=== PATIENT | male | born 1995 | race Two or more races ===

== ENCOUNTER 2016-08-15 15:02 | Inpatient (IN) | payer MEDICAID ==
--- NOTE | 2016-08-15 15:04 | EDPHY ---
H & P Time Seen by Provider: 08/15/16 15:04 HPI/ROS: CHIEF COMPLAINT: Altered mental status HISTORY OF PRESENT ILLNESS: Police were called to a patient who was wondering around acting strangely. Paramedics called and brought patient into the emergency department for evaluation. Denies trauma. Patient has no medical complaints. Denies history of psychiatric illness. REVIEW OF SYSTEMS: Eye: no change in vision ENT: no sore throat Cardiac: no chest pain or syncope Pulmonary: no cough or SOB Abdomen: no vomiting, diarrhea, abdominal pain Musculoskeletal: no back pain Skin: no rash Neuro: no headache Constitutional: no fever : no urinary symptoms A comprehensive 10 point review of systems is otherwise negative aside from elements mentioned in the history of present illness. PAST MEDICAL HISTORY: denies Social history: negative drugs or alcohol General Appearance: Alert and conversant, cooperative. Eyes: No scleral icterus. ENT, Mouth: Normal mucous membranes. No intraoral laceration or tongue abrasion. Respiratory: Normal respiratory effort, breath sounds equal, lungs are clear to auscultation. Cardiovascular: Regular rate and rhythm. Gastrointestinal: Abdomen is soft and non tender. Neurological: Alert and oriented x person, [facility]. Normally conversant. Face symmetric, normal movement and sensation in all extremities. Skin: Warm and dry, no rashes. Musculoskeletal: No peripheral edema and no joint swelling. Neck supple, no meningeal signs. Psychiatric: Not agitated. Emergency Department course/MDM: Patient is alert but does have rambling speech. He does not have any external evidence of trauma , denies drugs or alcohol. Discussed with PD at 1523; patient passed out on 's lawn. PD contacted by [facility] [place], because stranger passed out on lawn. 1735: Discussed in detail with the brother. He tells me that over the past week the patient has become increasingly psychotic, ranging in an in usual fashion about god and evangelical and screaming about his interpretation of evangelical, on Monday night. The day before that he had been explaining to his brother how the "[place] lights made him feel" and his brother thought that was very unusual for him to be talking that way. Yesterday he got in the car to help take his brother to work and when his brother said where we going? Patient said wherever the Force may take us. He drove his brother to work and then stayed in the car for the next 5 hours. At this time the patient is placed on a mental health hold for grave disability and increasingly psychotic behavior. The patient had a medical screening evaluation performed. There does not appear to be an aute emergent medical or surgical condition which would preclude psychiatric evaluation at this time. Mental health evaluation is requested at 1950. Signed out to Mumtaz at 2100 with psych evaluation ordered and pending. (John Trevizo) Care assumed by me from [facility] pending mental health evaluation. Patient is likely new schizophrenic with new hallucinations. 0300 patient has been accepted to [address] [place] [address] Oneil. I have completed the entire with warm. (Alexei Marrero) Constitutional: Initial Vital Signs Temperature (C) 37.5 C 08/15/16 15:10 Heart Rate 93 08/15/16 15:10 Respiratory Rate 18 08/15/16 15:10 Blood Pressure 160/98 H 08/15/16 15:10 O2 Sat (%) 98 08/15/16 15:10 O2 Delivery Mode Room Air Allergies/Adverse Reactions: No Known Allergies Allergy (Unverified 08/15/16 15:17) Home Medications: Medication Instructions Recorded NK [No Known Home Meds] 08/15/16 Medical Decision Making - Diagnostics Imaging: Normal noncontrast head CT per Dr. Alphonso Roberts at 7:29 p.m. (John Trevizo) Differential Diagnosis: Differential considered including but not limited to hypoglycemia, other metabolic, drugs or alcohol, primary psychiatric, other intoxicants. (John Trevizo) Other Provider: 9:00 p.m. care transferred to id by Dr. John Trevizo. The patient is sitting comfortably staring at the wall. He has no complaints. We are awaiting psychiatric evaluation. He is on a hold. He has been medically cleared. 11:00 p.m. care transferred to Dr. Girma Jennings. Patient has been value aid by mental health they plan to admit him to an inpatient psychiatric unit. He is on a hold. (Zacarias Pandya) - Data Points Laboratory Results: Laboratory Results 08/15/16 15:32 08/15/16 15:32 08/15/16 08/15/16 08/15/16 18:15 15:32 15:28 WBC 10.75 H 10^3/uL (3.80-9.50) RBC 4.93 10^6/uL (4.40-6.38) Hgb 15.8 g/dL (13.7-17.5) POC Hgb 16.0 gm/dL (14.5-17.3) Hct 44.8 % (40.0-51.0) POC Hct 47 % (42.8-50.6) MCV 90.9 fL (81.5-99.8) MCH 32.0 pg (27.9-34.1) MCHC 35.3 g/dL (32.4-36.7) RDW 12.0 % (11.5-15.2) Plt Count 229 10^3/uL (150-400) MPV 10.9 fL (8.7-11.7) Neut % (Auto) 78.4 H % (39.3-74.2) Lymph % (Auto) 15.1 % (15.0-45.0) Sunflower % (Auto) 5.6 % (4.5-13.0) Eos % (Auto) 0.0 L % (0.6-7.6) Baso % (Auto) 0.5 % (0.3-1.7) Nucleat RBC Rel Count 0.0 % (0.0-0.2) Absolute Neuts (auto) 8.44 H 10^3/uL (1.70-6.50) Absolute Lymphs (auto) 1.62 10^3/uL (1.00-3.00) Absolute Monos (auto) 0.60 10^3/uL (0.30-0.80) Absolute Eos (auto) 0.00 L 10^3/uL (0.03-0.40) Absolute Basos (auto) 0.05 10^3/uL (0.02-0.10) Absolute Nucleated RBC 0.00 10^3/uL (0-0.01) Immature Gran % 0.4 % (0.0-1.1) Immature Gran # 0.04 10^3/uL (0.00-0.10) POC Sodium 145 H mEq/L (134-144) Sodium 145 H mEq/L (134-144) POC Potassium 3.2 L mEq/L (3.3-5.0) Potassium 3.7 mEq/L (3.5-5.2) POC Chloride 106 mEq/L (96-108) Chloride 107 mEq/L (97-110) Carbon Dioxide 19 L mEq/l (22-31) Anion Gap 19 mEq/L (8-16) POC BUN 19 mg/dL (7-23) BUN 16 mg/dL (7-23) Creatinine 0.8 mg/dL (0.7-1.3) POC Creatinine 0.8 mg/dL (0.8-1.5) Estimated GFR > 60 Glucose 77 mg/dL (70-100) POC Glucose 87 mg/dL (70-100) Calcium 9.5 mg/dL (8.5-10.4) Salicylates < 1.0 L mg/dL (2.0-20.0) Urine Opiates Screen NEGATIVE (NEGATIVE) Acetaminophen < 10 L mcg/mL (10.0-30.0) Urine Barbiturates NEGATIVE (NEGATIVE) Ur Phencyclidine Scrn NEGATIVE (NEGATIVE) Ur Amphetamine Screen NEGATIVE (NEGATIVE) U Benzodiazepines Scrn NEGATIVE (NEGATIVE) Urine Cocaine Screen NEGATIVE (NEGATIVE) U Marijuana (THC) Screen NON-NEGATIVE H (NEGATIVE) Ethyl Alcohol < 10 mg/dL (0-10) Medications Given: Discontinued Medications Lorazepam (Ativan Injection) 2 mg IVP EDNOW ONE Stop: 08/15/16 18:42 Last Admin: 08/15/16 18:41 Dose: 2 mg Point of Care Test Results: 08/15/16 15:28 POC Sodium 145 H POC Potassium 3.2 L POC Chloride 106 POC BUN 19 POC Creatinine 0.8 POC Glucose 87 Departure - Departure Disposition: [facility] IP Clinical Impression: Psychotic disorder Qualifiers: Psychosis type: other Qualifier Code: (F28) Other psychotic disorder not due to a substance or known physiological condition Condition: Fair Referrals: NONE *PRIMARY CARE P,. [Primary Care Provider] - As per Instructions
[2016-08-15 15:43] LABS: % IMMATURE GRANULYOCYTES 0.4 % (0.0-1.1); ABSOLUTE IMMATURE GRANULOCYTES 0.04 10^3/uL (0.00-0.10); ADD DIFF? NO; ADD MORPH? NO; ADD SCAN? NO; ATYPICAL LYMPHOCYTE FLAG 20 (0-99); FRAGMENT RBC FLAG 0 (0-99); HEMATOCRIT 44.8 % (40.0-51.0); HEMOGLOBIN 15.8 g/dL (13.7-17.5); LEFT SHIFT FLG 0 (0-99); LIPEMIA HEMOLYSIS FLAG 90 (0-99); MEAN CELL HEMOGLOBIN CONCENTR. 35.3 g/dL (32.4-36.7); MEAN CELL VOLUME 90.9 fL (81.5-99.8); MEAN PLATELET VOLUME 10.9 fL (8.7-11.7); PLATELET CLUMPS FLAG 10 (0-99); PLATELET COUNT 229 10^3/uL (150-400); RED BLOOD CELL COUNT 4.93 10^6/uL (4.40-6.38)
[2016-08-15 16:13] LABS: ANION GAP 19 mEq/L (8-16); CALCIUM 9.5 mg/dL (8.5-10.4); CARBON DIOXIDE 19 mEq/l (22-31); CHLORIDE 107 mEq/L (97-110); CREATININE 0.8 mg/dL (0.7-1.3); ETHANOL SERUM < 10 mg/dL (0-10); GLOMERULAR FILTRATION RATE > 60; GLUCOSE 77 mg/dL (70-100); POTASSIUM 3.7 mEq/L (3.5-5.2); SODIUM 145 mEq/L (134-144)
[2016-08-15 17:19] LABS: SALICYLATE < 1.0 mg/dL (2.0-20.0)
[2016-08-15] MEDS ORDERED: LORazepam 2 MG/ML INJ ONE (18:27)
[2016-08-15] MEDS ORDERED: LORazepam 2 MG/ML INJ IVP ONE (18:41)
--- NOTE | 2016-08-15 19:33 | CT ---
CT Scan of Head (Without Contrast) Clinical Indications: Psychosis, trauma. Technique: Axial CT images were acquired from foramen magnum through vertex, without intravenous con trast. Soft tissue and bone windows were reviewed on the computer workstation. Images were reconstr ucted down to 1.25 mm images. Dose reduction techniques were utilized. Findings: No mass lesions are seen, and there is no evidence of intracranial hemorrhage or acute inf arct. The ventricles and subarachnoid spaces are normal in size for this age group. Bone windows re veal no sign of fracture. The paranasal sinuses and mastoid air cells are free of fluid. Impression: Normal CT of the head. I telephoned results to Dr. John Trevizo at 1925 hours.
[2016-08-16] MEDS ORDERED: MAGNESIUM HYDROXIDE 30 ML UDCUP PO PRN (03:10)
[2016-08-16] MEDS ORDERED: MAG HYDROX/AL HYDROX/SIMETH 30 ML UDCUP PO PRN (03:10)
[2016-08-16] MEDS ORDERED: NICOTINE POLACRILEX 2 MG GUM B PRN (03:10)
[2016-08-16] MEDS: RISPERIDONE 1 MG ODT TAB SL PRN (13:28)
[2016-08-16] MEDS: LORazepam 0.5 MG TAB PO PRN (13:28)
--- NOTE | 2016-08-16 16:49 | BCON ---
[f rep st] BEHAVIORAL HEALTH CONSULTATION INTERNAL MEDICINE CONSULTATION DATE OF CONSULTATION: 08/16/2016 REFERRING PHYSICIAN: Rupert Oneil MD REASON FOR CONSULTATION: medical clearance for inpatient behavioral health stay. HISTORY OF PRESENT ILLNESS: Mr. Boggs was brought to the emergency department [place] Per the emergency department report, he was wandering around, and he has had increasing psychotic behavior over the past week. He was evaluated by the emergency department and admitted for further psychiatric care. He is currently without any acute complaints. PAST MEDICAL HISTORY: He reports history of concussions x2 when he was a child. Otherwise, he denies any history of medical illness or surgery. He reports that despite the concussions, he was able to complete high school. MEDICATIONS: He was not on any medications. ALLERGIES: There is an allergy to shellfish listed. SOCIAL HISTORY: He lives with his parents. He has worked in [email or web address]. He is a marijuana user. He denies tobacco smoking or alcohol, or other drugs of abuse. FAMILY HISTORY: Noncontributory. REVIEW OF SYSTEMS: A 10-point review of systems was conducted and was negative. PHYSICAL EXAM: VITAL SIGNS: Blood pressure is 146/78, heart rate is 95, respiratory rate 16, oxygen saturation is 98% on room air. His weight is 82.6 kg for a body mass index of 24. GENERAL: This is a well-nourished, well- developed man appears his chronologic age, cooperative, and in no acute distress. HEENT: Extraocular movements are intact. Pupils are equal, round, reactive and reactive to light. Mucous membranes are moist. Dentition is in good condition. NECK: Supple without thyromegaly. HEART: Regular rate and rhythm with no murmurs, rubs, or gallops. LUNGS: Clear to auscultation bilaterally. ABDOMEN: Soft, nontender, nondistended with normoactive bowel sounds. EXTREMITIES: There is no cyanosis, clubbing, or edema. NEUROLOGIC: He is alert. Orientation was not checked. He has a bizarre affect, somewhat guarded and with pressured speech at the same time. Cranial nerves 2-12 are grossly intact. There is no focal weakness. Sensation is intact to light touch. SKIN: Overall is warm and dry, but his palms are cool and sweaty. LABORATORY: Studies drawn in the emergency department: CBC showed an elevated white blood count cell count of 10.75 with no left shift. There was a predominance of neutrophils and a relative decrement of eosinophils. Serum chemistry revealed an elevated sodium at 145. Initially in the emergency department, his potassium was 3.2, but later corrected to 3.7. His CO2 was slightly low at 19. Otherwise, renal function and electrolytes were within normal limits. Toxicology in the serum was negative for salicylates, acetaminophen, or ethyl alcohol. Toxicology in the urine was non-negative for marijuana and otherwise negative for any substances of abuse. ASSESSMENT AND PLAN: 1. Mental health issues: Pending further evaluation and management per Psychiatry and the mental health team. 2. Leukocytosis: This is mild and likely due to stress. He can consider follow up on this issue with primary care after discharge. 3. Hypernatremia: Very mild. He may have had some dehydration as he reported that he has been thirsty. Would monitor for normal oral intake and otherwise, further evaluation is not indicated. 4. Elevated blood pressure: Possibly due to stress. Advise continued monitoring and consider initiation of medications if his blood pressure remains elevated after his psychiatric condition improves. I see no medical contraindications to Mr. Boggs's continued stay on the inpatient behavioral health unit, or to any psychiatric medications or procedures. Thank you very much for including me in the care of Mr. Boggs, and please do not hesitate to contact me or the hospitalist service should there be need for further medical evaluation. /[id number]/MODL MTDD
--- NOTE | 2016-08-16 17:39 | BAPA ---
[f rep st] ADMISSION PSYCHIATRIC ASSESSMENT DATE OF SERVICE: 08/16/2016 REASON FOR EVALUATION: The patient is a 20-year-old male who was brought to the emergency d epartment by EMS after his family called them concerned for his safety. He apparently had wandered o ff after an argument with his brother and had been walking around. At some point, he drove his vehic le to the [facility] where he parked it and left the doors open. He then continue d to wander and ended up [place] and knocked on someone's door requesting a glass of water. He appeared disorganized and confused, and the home dentist/owner called the po lice. They called EMS, and he was brought to the hospital for further evaluation. In the emergency department, he was disorganized and struggled to give a coherent history. He made statements to EPS such as, "I'm not a rapper, I'm a gorilla that claps." He also stated that he was concerned about hi s brother and that he felt like he was in someway acting against him. He stated that they had gotten into an argument, because he believed that he was either acting against him or was following him. H gustavo states that lately he has begun to believe that "all eyes are on me." He states that he has recent ly felt "different" and has been increasingly anxious, and, by his own admission, paranoid. He state s he believes that people are watching him at all times, and that a friend of his who overdosed but s urvived is actually and that people are lying to him about it. The patient's brother states julianne t the patient has not been sleeping well, that he has not been eating and has been acting strangely. The family actually filed a missing person's report because the patient had abruptly left, and they had no idea where he was. He has no previous psychiatric history and is a regular pot user but appar ently had been cutting back recently due to what his experience was with paranoia. Patient offers sandra matias additional information today stating, "I don't feel like myself." He does state that he believe s people are watching him and that his brother, at times, may be acting against him, though is not sp ecific about any formed thoughts or ideas. He states that he has had trouble sleeping due to anxiety and fear and has typically slept between 1 and 4 hours in the last 4-5 nights. He states that he wa s worried that the marijuana "was really bad for my brain" and that he decreased from using around a gram a day to using less but continues to use on a regular basis. He denies any other drug use. He denies having any auditory hallucinations, though at times appears internally preoccupied during the interview. PAST PSYCHIATRIC HISTORY: The patient denies any previous psychiatric treatment of any kind. He has had no previous medication treatments or psychiatric hospitalizations. Patient denies any previous suicide attempts. ALLERGIES: No known medical allergies. CURRENT MEDICATIONS: None. PAST MEDICAL HISTORY: Significant for 2 concussions, 1 he sustained as a child when he hit his sled into a tree and another in high school playing football. He states that he was seen for medical eval uation due to disorientation after a football injury but suffered no lasting effects. SOCIAL HISTORY: Patient lives in [place] with his stepfather, his mother, his twin brother and his si ster. He works in [employer] and states that this is a good job. He is a high [employer] graduate. He denies any legal problems. He denies any other specific stressors at this time. SUBSTANCE ABUSE HISTORY: Patient states that he only uses marijuana, and that his use of this has de creased from a gram a day to less than that, though he is somewhat nonspecific. FAMILY HISTORY: Patient denies any family history of mental illness. ADMISSION LABORATORY: CBC shows a white count up at 10.75 with a neutrophil percentage of 78.4. Ser um chemistry shows sodium up at 145, potassium down at 3.2, otherwise normal. Urine drug screen is p ositive for marijuana. MENTAL STATUS EXAMINATION: Reveals an adequately groomed, pleasant and cooperative male. Bipin chen interacts in a very stiff and somewhat odd manner. His affect is odd as well, smiling inappropriat alfredo and demonstrating very poor modulation. He is pleasant and cooperative, though somewhat robotic in his interactions, including his manner of shaking hands very slowly. His mood is described as "fi ne." His thought process is abbreviated, concrete, and while linear at times, he seems to also derai l. His thought content reveals the paranoia and ideas of reference. He denies any auditory hallucin ations. He is alert and oriented to person, place, time and situation, and his sensorium is clear. His attention and concentration are adequate to the interview, though he may be internally distracted . His intellect appears to be average, as evidenced by his educational and occupational histories, f und of knowledge and vocabulary. He denies any thoughts of suicide, homicide or violence. His insig ht and judgment appear to be fair. IMPRESSION: Psychotic disorder, not otherwise specified, possible first break schizophrenia, possibl e drug-induced psychosis, cannabis use disorder, moderate to severe. The patient is a pleasant 20-year-old, male who presents with acute psychosis. It is unclea r the exact origin of this, except that he is a heavy cannabis user. The character of symptoms is conley ggestive of possible schizophrenia, though his prodrome appears to only be approximately 5 days at th is point. PLAN: 1. Admit to [facility] on an M1 hold. 2. We will monitor closely and provide serial clinical interviews to better ascertain the nature of his symptoms, diagnosis and formulate a more specific treatment plan. 3. Will begin treatment with Risperdal for acute psychotic symptoms. The risks, benefits and altern atives of this were discussed with the patient, and he is somewhat hesitant to consider medications, though states he will consider taking it at bedtime tonight when it is offered. Estimated length of stay is 7 days. /[id number]/MODL
[2016-08-16] MEDS: risperiDONE 1 MG TAB PO SCH (21:17)
[2016-08-17] MEDS: RISPERIDONE 1 MG ODT TAB SL PRN (10:46)
[2016-08-17] MEDS: LORazepam 0.5 MG TAB PO PRN (12:14)
--- NOTE | 2016-08-17 14:38 | SOAPPROG ---
SOAP Progress Note Assessment/Plan: Assessment: Plan: Subjective: Pt seen, discussed with staff. He was observed to be very disorganized, labile and bizarre when family visited yesterday. Later, he was unable to communicate intelligibly due to level of disorganization. He was crying and purposefully coughing and clearing his throat to the point of vomiting. He took one prn dose of Risperdal and then refused the scheduled HS dose. He was quite agitated this morning and did agree to take another prn dose. Objective: Vital Signs Temp Pulse Resp BP Pulse Ox 36.7 C 98 12 123/72 H 100 08/17/16 06:00 08/17/16 06:00 08/17/16 06:00 08/17/16 06:00 08/17/16 06:00 MSE: Calm, coop. Affect is odd, smiling, incongruent, poorly modulated. Mood is "fine." TP abbreviated, disorganized. TC reveals delay in responding, blocking, derailment, paranoia and IOR's. - Time Spent With Patient Time Spent With Patient: 25" - Pending Discharge Pending Discharge Within 24 Hours: No Pending Discharge Within 48 Hours: No ICD10 Worksheet Patient Problems: Problems Problem Status Diagnosed Psychotic disorder Acute
[2016-08-17] MEDS: risperiDONE 1 MG TAB PO SCH (20:57)
--- NOTE | 2016-08-18 13:17 | SOAPPROG ---
SOAP Progress Note Assessment/Plan: Assessment: Plan: 08/18/16 13:18 Remains acutely psychotic. Will CCM as pt is now compliant. There is no evidence of acute withdrawal or delirium but will continue to monitor for this. Place on [facility]. Subjective: Pt seen, discussed with staff. He remains disorganized, unable to meaningfully engage with therapeutic activities. Displays a high level of general agitation , pacing in the halls and in his room. No aggression noted. He appears anxious and internally preoccupied with me, unable to sustain a conversation. I reviewed with him the goals for his current treatment and the need for continued hospitalization. I informed him of the [facility] and that the criteria for releasing this include normalization of his mental status ("your thoughts clearing up") and resolution of the paranoia. His brother reported to that pt has been using much more heavily than he initially reported. He told me he has been "cutting back" on his cannabis use but has actually been dabbing excessively. He has also reportedly been using ETOH, benzo's and opiates. His brother reports having a similar mental status change in the last year himself that lasted about four months until it resolved on its own with abstinence from cannabis but no medical intervention. Objective: Vital Signs Temp Pulse Resp BP Pulse Ox 36.6 C 56 L 12 151/97 H 97 08/18/16 05:33 08/18/16 05:33 08/18/16 05:33 08/18/16 05:33 08/18/16 05:33 MSE: Agitated, pacing, internally preoccupied. Affect remains oddly elevated, smiling constantly. Mood is "good." TP delayed, abbreviated with blocking and derailment. - Time Spent With Patient Time Spent With Patient: 15" - Pending Discharge Pending Discharge Within 24 Hours: No Pending Discharge Within 48 Hours: No ICD10 Worksheet Patient Problems: Problems Problem Status Diagnosed Psychotic disorder Acute
[2016-08-18] MEDS ORDERED: risperiDONE 1 MG TAB PO SCH (13:19)
[2016-08-18] MEDS: ACETAMINOPHEN 325 MG TAB PO PRN (20:48)
[2016-08-18] MEDS: risperiDONE 2 MG TAB PO SCH (21:44)
--- NOTE | 2016-08-19 11:08 | SOAPPROG ---
SOAP Progress Note Assessment/Plan: Assessment: Plan: 08/18/16 13:18 Remains acutely psychotic. Will CCM as pt is now compliant. There is no evidence of acute withdrawal or delirium but will continue to monitor for this. Place on [facility]. 08/19/16 11:10 No significant change. Tolerating Risperdal well. I do not believe the wretching is a sign of any serious medical issue. It seems to be either anxiety related or a repetitive behavior. CCM. Subjective: Pt seen, discussed with staff. Continues to isolate in his room. Internally preoccupied. Also continues to cough and gag leading to wretching. Staff noted some blood tinged fluid on the bedding this morning. I inspected his emesis basin and saw clear and white sputum/emesis and noted no blood. Pt cannot explain why this is happening. He indicates that this is not normal for him, but denies cough, nausea, stomach pain or other GI sx's. He fixated during the interview on my cologne, making loose associations to names of other colognes. He abruptly halts our discussion to say, "Check this out." He the smiled broadly and turned toward the window holding his arms out to his sides with palms upturned. He began gesturing towards a construction zone across the street as if he was manipulating something. He continued to do this while he began breathing deeply, stating, "Isn't that cool." Eating and sleeping adequately, though continues to struggle to interact appropriately with others. Objective: Vital Signs Temp Pulse Resp BP Pulse Ox 36.6 C 65 14 165/77 H 94 08/19/16 03:00 08/19/16 03:00 08/19/16 03:00 08/19/16 03:00 08/19/16 03:00 MSE: MOderately agitated, pacing in his room in front of the window. Affect is odd with a fixed smile. Mood is "really good." TP abbreviated with notable blocking and derailment. He continues to attend to IS. - Time Spent With Patient Time Spent With Patient: 25" - Pending Discharge Pending Discharge Within 24 Hours: No Pending Discharge Within 48 Hours: No ICD10 Worksheet Patient Problems: Problems Problem Status Diagnosed Psychotic disorder Acute
[2016-08-19] MEDS: RISPERIDONE 1 MG ODT TAB SL PRN ×2 (17:57→20:27)
[2016-08-19] MEDS: risperiDONE 2 MG TAB PO SCH (20:27)
[2016-08-20] MEDS: RISPERIDONE 1 MG ODT TAB SL PRN (10:40)
[2016-08-20] MEDS: LORazepam 0.5 MG TAB PO PRN (10:40)
--- NOTE | 2016-08-20 11:23 | SOAPPROG ---
SOAP Progress Note Assessment/Plan: Assessment: Pt is a 20 y/o male with no previous psych hx who is a heavy THC user ( dabbing) who was brought to the ED with 5 days of disorganized and psychotic behavior. His twin brother had a very similar episode with the same sx for 4 months 1.5 years ago-they both use cannabis. 08/20/16-agitated, yelling, refusing meds, wants to leave, appears to be responding to internal stimuli Plan:Encourage pt to take meds pt on a [facility] family visits often 08/20/16 11:23 Subjective: "I'm angry!" Objective: Vital Signs Temp Pulse Resp BP Pulse Ox 36.6 C 45 L 15 140/78 H 100 08/20/16 06:00 08/20/16 06:00 08/20/16 06:00 08/20/16 06:00 08/20/16 06:00 Pt is yelling, sitting on bed, alert; worried meds will make him vomit mood-"angry" labile affect-broad +appears to be responding to internal stimuli no S/H I thoughts-illogical speech-loud +thought blocking + bizarre mannerisms-retching +AH +disorganized behavior slept 7 hours is refusing to eat breakfast + sx acute psychosis I/J-poor - Time Spent With Patient Time Spent With Patient: 25' - Pending Discharge Pending Discharge Within 24 Hours: No Pending Discharge Within 48 Hours: No ICD10 Worksheet Patient Problems: Problems Problem Status Diagnosed Psychotic disorder Acute
[2016-08-20] MEDS: risperiDONE 2 MG TAB PO SCH (21:44)
--- NOTE | 2016-08-21 11:32 | SOAPPROG ---
SOAP Progress Note Assessment/Plan: Assessment: Pt is a 20 y/o male with no previous psych hx who is a heavy THC user ( dabbing) who was brought to the ED with 5 days of disorganized and psychotic behavior. His twin brother had a very similar episode with the same sx for 4 months 1.5 years ago-they both use cannabis. 08/20/16-agitated, yelling, refusing meds, wants to leave, appears to be responding to internal stimuli 08/21/16-staring ahead, is frightened any meds will make him nauseas Plan:Encourage pt to take meds-refused to take meds 08/20/16 even with much staff encouragement pt on a [facility] family visits often 08/21/16 11:32 Subjective: staring ahead-refusing meds Objective: Vital Signs Temp Pulse Resp BP Pulse Ox 36.8 C 92 16 126/86 H 96 08/21/16 06:00 08/21/16 06:00 08/21/16 06:00 08/21/16 06:00 08/21/16 06:00 Pt is Alert mood-neutral affect-constricted + appears to be responding to internal stimuli thoughts-paranoid, illogical no S/H I reported slept 6-8 hours poor appetite + paranoia +somatic c/o-fear of anything making him vomit memory/conc-poor I/J-poor - Time Spent With Patient Time Spent With Patient: 20' - Pending Discharge Pending Discharge Within 24 Hours: No Pending Discharge Within 48 Hours: No ICD10 Worksheet Patient Problems: Problems Problem Status Diagnosed Psychotic disorder Acute
[2016-08-21] MEDS: risperiDONE 2 MG TAB PO SCH (21:28)
[2016-08-22] MEDS: RISPERIDONE 1 MG ODT TAB SL PRN ×2 (09:03→19:47)
--- NOTE | 2016-08-22 13:43 | SOAPPROG ---
SOAP Progress Note Assessment/Plan: Assessment: Plan: 08/18/16 13:18 Remains acutely psychotic. Will [facility] as pt is now compliant. There is no evidence of acute withdrawal or delirium but will continue to monitor for this. Place on ST. 08/19/16 11:10 No significant change. Tolerating Risperdal well. I do not believe the wretching is a sign of any serious medical issue. It seems to be either anxiety related or a repetitive behavior. [facility]. 08/22/16 13:43 Remains very ill. Will [facility], try to encourage pt to take Risperdal. Will petition for [facility]. Subjective: Pt seen, discussed with staff, chart reviewed and case discussed with Dr. Orellana. He has refused Risperdal for the past three nights. He cannot give me a specific reason for this. He blamed it for his wretching which he continues to do frequently. He is labile, sobbing suddenly at times. Out in the milieu more but unable to interact with others or effectively communicate his needs. Eating poorly, has lost two pounds since admission. Objective: Vital Signs Temp Pulse Resp BP Pulse Ox 36.8 C 92 16 126/86 H 96 08/21/16 06:00 08/21/16 06:00 08/21/16 06:00 08/21/16 06:00 08/21/16 06:00 MSE: Poorly groomed, minimally interactive. He will stare at me with decreased eye blink, but does not speak. He cries throughout interview, but cannot say why. His affect otherwise appears angry. He appears to be attending to internal stimuli. TP is difficult to assess but appears disorganized. - Time Spent With Patient Time Spent With Patient: 15" - Pending Discharge Pending Discharge Within 24 Hours: No Pending Discharge Within 48 Hours: No ICD10 Worksheet Patient Problems: Problems Problem Status Diagnosed Psychotic disorder Acute
[2016-08-22] MEDS: LORazepam 0.5 MG TAB PO PRN (13:45)
[2016-08-22] MEDS: risperiDONE 2 MG TAB PO SCH (13:45)
[2016-08-23] MEDS: RISPERIDONE 1 MG ODT TAB SL PRN (13:37)
--- NOTE | 2016-08-23 14:43 | SOAPPROG ---
SOAP Progress Note Assessment/Plan: Assessment: Plan: 08/18/16 13:18 Remains acutely psychotic. Will [facility] as pt is now compliant. There is no evidence of acute withdrawal or delirium but will continue to monitor for this. Place on ST. 08/19/16 11:10 No significant change. Tolerating Risperdal well. I do not believe the wretching is a sign of any serious medical issue. It seems to be either anxiety related or a repetitive behavior. [facility]. 08/22/16 13:43 Remains very ill. Will [facility], try to encourage pt to take Risperdal. Will petition for COM. 08/23/16 14:43 Remains acutely psychotic. [facility]. Subjective: Pt seen, discussed with staff. More interactive with me today, asking me to walk with him in the halls and then asks to sit in my office and talk. Unfortunately, he is unable to form coherent thoughts or communicate meaningfully. He is frustrated by this, but also internally preoccupied and disorganized with frequent blocking. Notable delay in speech and actions. Had to be told repeatedly to leave the office after interview was over. His family visited yesterday and was able to convince him to take meds. He states he will not take any meds after he leaves the hospital. Objective: Vital Signs Temp Pulse Resp BP Pulse Ox 36.8 C 92 16 126/86 H 96 08/21/16 06:00 08/21/16 06:00 08/21/16 06:00 08/21/16 06:00 08/21/16 06:00 MSE: Poorly groomed, significant psychomotor retardation. Affect is blunted, stable, no crying. Mood is "bad." TP disorganized with prominent blocking and derailment. TC reveals internal preoccupation, likely AH's, paranoia. - Time Spent With Patient Time Spent With Patient: 25" - Pending Discharge Pending Discharge Within 24 Hours: No Pending Discharge Within 48 Hours: No ICD10 Worksheet Patient Problems: Problems Problem Status Diagnosed Psychotic disorder Acute
[2016-08-23] MEDS: risperiDONE 2 MG TAB PO SCH (19:03)
[2016-08-24] MEDS: RISPERIDONE 1 MG ODT TAB SL PRN (09:42)
--- NOTE | 2016-08-24 16:48 | SOAPPROG ---
SOAP Progress Note Assessment/Plan: Assessment: Plan: 08/18/16 13:18 Remains acutely psychotic. Will [facility] as pt is now compliant. There is no evidence of acute withdrawal or delirium but will continue to monitor for this. Place on ST. 08/19/16 11:10 No significant change. Tolerating Risperdal well. I do not believe the wretching is a sign of any serious medical issue. It seems to be either anxiety related or a repetitive behavior. [facility]. 08/22/16 13:43 Remains very ill. Will [facility], try to encourage pt to take Risperdal. Will petition for COM. 08/23/16 14:43 Remains acutely psychotic. [facility]. 08/24/16 16:48 Remains very ill. He is compliant at this point, but will seek COM if he begins missing doses. Subjective: Pt seen, discussed with staff. Remains isolative, disorganized. Refused Risperdal last night but took it today. RN asks to change schedule to day so family can encourage him to take it. Unable to communicate meaningfully with me today. Perseverating on needing to brush his teeth but cannot seem to organize himself to do so. Objective: Vital Signs Temp Pulse Resp BP Pulse Ox 36.3 C 81 14 122/79 H 99 08/24/16 03:38 08/24/16 03:38 08/24/16 03:38 08/24/16 03:38 08/24/16 03:38 MSE: Agitated, disorganized. Affect is constricted. TP disorganized with prominent blocking. Internally preoccupied. - Time Spent With Patient Time Spent With Patient: 15" - Pending Discharge Pending Discharge Within 24 Hours: No Pending Discharge Within 48 Hours: No ICD10 Worksheet Patient Problems: Problems Problem Status Diagnosed Psychotic disorder Acute
[2016-08-24] MEDS: risperiDONE 2 MG TAB PO SCH ×2 (20:36→21:09)
[2016-08-25] MEDS: risperiDONE 2 MG TAB PO SCH ×2 (13:20→18:27)
[2016-08-25] MEDS: ACETAMINOPHEN 325 MG TAB PO PRN (14:06)
--- NOTE | 2016-08-25 19:02 | SOAPPROG ---
SOAP Progress Note Assessment/Plan: Assessment: Plan: 08/18/16 13:18 Remains acutely psychotic. Will [facility] as pt is now compliant. There is no evidence of acute withdrawal or delirium but will continue to monitor for this. Place on ST. 08/19/16 11:10 No significant change. Tolerating Risperdal well. I do not believe the wretching is a sign of any serious medical issue. It seems to be either anxiety related or a repetitive behavior. [facility]. 08/22/16 13:43 Remains very ill. Will [facility], try to encourage pt to take Risperdal. Will petition for COM. 08/23/16 14:43 Remains acutely psychotic. [facility]. 08/24/16 16:48 Remains very ill. He is compliant at this point, but will seek COM if he begins missing doses. 08/25/16 19:02 No change. REmains acutely psychotic. [facility]. Subjective: Pt seen, discussed with staff. Remains isolative, paranoid. Won't allow in his room to talk. Refused Risperdal last night again. Hope to see compliance with family encouragement. REmains disorganized, minimally communicative, internally focused. Objective: Vital Signs Temp Pulse Resp BP Pulse Ox 36.3 C 51 L 12 118/58 L 97 08/25/16 06:12 08/25/16 06:12 08/25/16 06:12 08/25/16 06:12 08/25/16 06:12 MSE: Poorly groomed, states, "I know I stink." Affect is consrtricted. Mood is "OK." TP disorganized, blocked. - Time Spent With Patient Time Spent With Patient: 15" - Pending Discharge Pending Discharge Within 24 Hours: No Pending Discharge Within 48 Hours: No ICD10 Worksheet Patient Problems: Problems Problem Status Diagnosed Psychotic disorder Acute
[2016-08-26] MEDS: risperiDONE 2 MG TAB PO SCH (12:13)
--- NOTE | 2016-08-26 13:23 | SOAPPROG ---
SOAP Progress Note Assessment/Plan: Assessment: Plan: 08/18/16 13:18 Remains acutely psychotic. Will [facility] as pt is now compliant. There is no evidence of acute withdrawal or delirium but will continue to monitor for this. Place on ST. 08/19/16 11:10 No significant change. Tolerating Risperdal well. I do not believe the wretching is a sign of any serious medical issue. It seems to be either anxiety related or a repetitive behavior. [facility]. 08/22/16 13:43 Remains very ill. Will [facility], try to encourage pt to take Risperdal. Will petition for COM. 08/23/16 14:43 Remains acutely psychotic. [facility]. 08/24/16 16:48 Remains very ill. He is compliant at this point, but will seek COM if he begins missing doses. 08/25/16 19:02 No change. REmains acutely psychotic. [facility]. 08/26/16 13:23 Remains acutely ill, gravely disabled. [facility]. Subjective: Pt seen, discussed with staff. Continues to isolate in his room. Blocks the door from fully opening when I attempt to enter the room. Hides behind the door and peers around at me. Declines interview. States he wants to go home. Refused HS Risperdal last night though has been taking it with his family present. Objective: Vital Signs Temp Pulse Resp BP Pulse Ox 36.3 C 51 L 12 118/58 L 97 08/25/16 06:12 08/25/16 06:12 08/25/16 06:12 08/25/16 06:12 08/25/16 06:12 - Time Spent With Patient Time Spent With Patient: 15" - Pending Discharge Pending Discharge Within 24 Hours: No Pending Discharge Within 48 Hours: No ICD10 Worksheet Patient Problems: Problems Problem Status Diagnosed Psychotic disorder Acute
[2016-08-27] MEDS: risperiDONE 2 MG TAB PO SCH (12:30)
--- NOTE | 2016-08-27 13:18 | SOAPPROG ---
SOAP Progress Note Assessment/Plan: Assessment: 20 y/o male with no previous psych hx who is a heavy THC user (imelda ) brought to the ED with 5 days of disorganized and psychotic behavior. Plan: continue Risperdal on STC cont THC abstinence 08/27/16 15:45 per staff, slept 8hr taking Risperdal now, but still with psychosis/appears preoccupied altho denies ah/vh on interview, pt reports "not sure" why here..."I was brought here...I think I was disoriented and confused". mood "happy", "could be happier". affect incongruent, presents restricted. decr eye contact, low vol speech, nml/decr rate, often covering mouth making speech inaudible at times. covers mouth b/c convinced he has bad breath. disorganized thoughts at times. denied AH/VH. denied IOR but admits racing thoughts sometimes. denied med s/e. not feeling sleeps well b/c not in own bed at home and "a little scared at night". talked some of having had propane in car b/c heater not working, and realized this may have not been good idea "because I feel high naturally already", and noticed hands were getting numb while driving. Objective: Vital Signs Temp Pulse Resp BP Pulse Ox 36.3 C 66 13 119/82 H 96 08/27/16 06:49 08/27/16 06:49 08/27/16 06:49 08/27/16 06:49 08/27/16 06:49 - Time Spent With Patient Time Spent With Patient: 25 min - Pending Discharge Pending Discharge Within 24 Hours: No Pending Discharge Within 48 Hours: No ICD10 Worksheet Patient Problems: Problems Problem Status Diagnosed Psychotic disorder Acute
--- NOTE | 2016-08-28 07:55 | SOAPPROG ---
SOAP Progress Note Assessment/Plan: Assessment: 20 y/o male with no previous psych hx who is a heavy THC user (imelda ) brought to the ED with 5 days of disorganized and psychotic behavior. seems slowly improving Plan: continue Risperdal on ST cont THC abstinence 08/27/16 15:45 per staff, slept 8hr taking Risperdal now, but still with psychosis/appears preoccupied altho denies ah/vh on interview, pt reports "not sure" why here..."I was brought here...I think I was disoriented and confused". mood "happy", "could be happier". affect incongruent, presents restricted. decr eye contact, low vol speech, nml/decr rate, often covering mouth making speech inaudible at times. covers mouth b/c convinced he has bad breath. disorganized thoughts at times. denied AH/VH. denied IOR but admits racing thoughts sometimes. denied med s/e. not feeling sleeps well b/c not in own bed at home and "a little scared at night". talked some of having had propane in car b/c heater not working, and realized this may have not been good idea "because I feel high naturally already", and noticed hands were getting numb while driving. 08/28/16 14:43 slept 9.5hr. continues isolative and w/delayed responses per g staff. family visited. pt resting in bed, calm, good eye contact, nml speech vol but brief responses to questions. denied AH/VH or SI. affect restricted/blunted. mood "good". meds "good." family visit today "good". responses to more open-ended questions seemed more fluent and less with thought blocking. states he is attending some groups. sleep of 9.5hr last pm he felt was interrupted, "light". Denied any pain or physical problems. denied med s/e. PLAN: continue Risperdal 2mg qd. on [facility] Objective: Vital Signs Temp Pulse Resp BP Pulse Ox 36.3 C 66 13 119/82 H 96 08/27/16 06:49 08/27/16 06:49 08/27/16 06:49 08/27/16 06:49 08/27/16 06:49 - Time Spent With Patient Time Spent With Patient: 20 min - Pending Discharge Pending Discharge Within 24 Hours: No Pending Discharge Within 48 Hours: No ICD10 Worksheet Patient Problems: Problems Problem Status Diagnosed Psychotic disorder Acute
[2016-08-28] MEDS: risperiDONE 2 MG TAB PO SCH (12:05)
[2016-08-29] MEDS: risperiDONE 2 MG TAB PO SCH (11:43)
--- NOTE | 2016-08-29 18:37 | SOAPPROG ---
SOAP Progress Note Assessment/Plan: Assessment: Plan: 08/18/16 13:18 Remains acutely psychotic. Will [facility] as pt is now compliant. There is no evidence of acute withdrawal or delirium but will continue to monitor for this. Place on ST. 08/19/16 11:10 No significant change. Tolerating Risperdal well. I do not believe the wretching is a sign of any serious medical issue. It seems to be either anxiety related or a repetitive behavior. [facility]. 08/22/16 13:43 Remains very ill. Will [facility], try to encourage pt to take Risperdal. Will petition for COM. 08/23/16 14:43 Remains acutely psychotic. [facility]. 08/24/16 16:48 Remains very ill. He is compliant at this point, but will seek COM if he begins missing doses. 08/25/16 19:02 No change. REmains acutely psychotic. [facility]. 08/26/16 13:23 Remains acutely ill, gravely disabled. [facility]. 08/29/16 18:37 Improving with consistent meds. CCM. Continue active d/c planning. Subjective: Pt seen, discussed with staff, chart reviewed. He looks much better than on my last encounter with him on Monday. He is alert and interactive, less internally preoccupied and able to have a reasonable conversation. He was compliant with meds over the weekend. Objective: Vital Signs Temp Pulse Resp BP Pulse Ox 36.3 C 82 12 112/69 97 08/29/16 16:20 08/29/16 16:20 08/29/16 16:20 08/29/16 16:20 08/29/16 16:20 MSE: Calm, coop. Eye contact much improved. Affect is more appropriate though continues to smile in an incongruent manner. Mood is "good." TP more linear. TC reveals less internal preoccupation. - Time Spent With Patient Time Spent With Patient: 15" ICD10 Worksheet Patient Problems: Problems Problem Status Diagnosed Psychotic disorder Acute
[2016-08-30] MEDS: risperiDONE 2 MG TAB PO SCH (12:39)
--- NOTE | 2016-08-30 16:15 | SOAPPROG ---
SOAP Progress Note Assessment/Plan: Assessment: Plan: 08/18/16 13:18 Remains acutely psychotic. Will [facility] as pt is now compliant. There is no evidence of acute withdrawal or delirium but will continue to monitor for this. Place on ST. 08/19/16 11:10 No significant change. Tolerating Risperdal well. I do not believe the wretching is a sign of any serious medical issue. It seems to be either anxiety related or a repetitive behavior. [facility]. 08/22/16 13:43 Remains very ill. Will [facility], try to encourage pt to take Risperdal. Will petition for COM. 08/23/16 14:43 Remains acutely psychotic. [facility]. 08/24/16 16:48 Remains very ill. He is compliant at this point, but will seek COM if he begins missing doses. 08/25/16 19:02 No change. REmains acutely psychotic. [facility]. 08/26/16 13:23 Remains acutely ill, gravely disabled. [facility]. 08/29/16 18:37 Improving with consistent meds. CCM. Continue active d/c planning. 08/30/16 16:16 Continued improvement. CCM. Likely d/c tomorrow if all is well. Subjective: Pt seen, discussed with staff. Reports feeling "really good." Upbeat and interactive. Attending groups. Remains compliant with meds. Sleeping well. Parents unable to pick pt up today due to weather. Objective: Vital Signs Temp Pulse Resp BP Pulse Ox 36.3 C 82 12 112/69 97 08/29/16 16:20 08/29/16 16:20 08/29/16 16:20 08/29/16 16:20 08/29/16 16:20 MSE: Generally calm, coop, appropriately interactive. Affect is better modulated, approp. Mood is "good." TP generally linear. TC reveals no overt psychosis. No SI/HI/. - Time Spent With Patient Time Spent With Patient: 15" - Pending Discharge Pending Discharge Within 24 Hours: Yes Pending Discharge Date: 08/31/16 Pending Discharge Time: 11:00 ICD10 Worksheet Patient Problems: Problems Problem Status Diagnosed Psychotic disorder Acute
[2016-08-31 06:29] VITALS: BP 119/72; PULSE 51; RESP 16; TEMP 98; O2SAT 99
[2016-08-31] MEDS: risperiDONE 2 MG TAB PO SCH (13:03)
--- NOTE | 2016-09-13 16:12 | BDS ---
[f rep st] BEHAVIORAL HEALTH DISCHARGE SUMMARY REASON FOR ADMISSION: Patient is a 21-year-old male with a history of a recent change in me ntal status. He apparently had wandered away from his family, had been walking around the [facility]. He had abandoned his vehicle and a missing person's report had been filed. His brother stated that he had been recently very paranoid and had been voicing odd beliefs and appeared disorganized. He stated that he believed people were following him and watching him, and he was not sleeping. He had been using cannabis excessively in all forms, including dabbing, and his brother s tated that he was concerned that this was the source of his problems. A full description of the even ts preceding admission can be found in his admission history dated 08/16/2016. ADMITTING DIAGNOSES: 1. 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 2. 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 3. Cannabis use disorder, moderate to severe. ADMITTING PHYSICAL EXAMINATION: Performed by Dr. Marco Sheets revealed no acute physical findings . ADMISSION LABORATORY: CBC showed a white count elevated at 10.75, otherwise normal. Serum chemistry showed a sodium up at 145, potassium down at 3.2, otherwise normal. Urine drug screen was positive for marijuana. HOSPITAL COURSE: Patient was admitted to the behavior health services inpatient unit on an M1 hold. He was extremely disorganized, internally focused, and appeared to be hallucinating. He was unable to give a coherent history and made many odd statements. He did appear paranoid stating that he stil l believes that "all eyes are on me." He was able to state that he did feel "different" and stated " I don't feel like myself," but was unable to describe exactly what. Patient's brother called at 1 po int, stated that he himself had had nearly identical symptoms several months before related to heavy cannabis use, and he was concerned that the patient may be having the same thing. He had no other pr evious history of psychosis, and it was very likely that it was induced by his heavy cannabis use. We discussed potential medication treatments and patient was initially very resistant. He stated he did not want to take any kinds of medications, that he did not think there is anything wrong with him , and that he wanted to be released from the hospital. We initially started with Risperdal at low do ses and he would intermittently refuse this. His family was able to convince him at times to take it , but in the first several days of admission he definitely took a fewer doses than were prescribed. After he settled a little bit and his family was able to convince him to be compliant, he then began to take doses more regularly. Once he was on the medication for several days continuously, he improv ed greatly. His thoughts became more linear. His hallucinatory experiences seemed to resolve, and dayan chen was able to participate more actively in his treatment. Patient's hospitalization was uncomplicated. At no time did he display any aggression, and he was ge nerally compliant with staff directions. Condition on discharge was much improved. His affect was more appropriate. His thoughts were more l inear, and his psychosis had largely abated. He is tolerating the medicines well with no side effect s. He was sleeping through the night, eating adequately, and was able to attend to his own ADLs. DISCHARGE MEDICATIONS: Risperdal 2 mg p.o. q.h.s. DISCHARGE DIAGNOSES: 1. Cannabis-induced psychosis. 2. Cannabis use disorder, severe. 3. Occupational problems. DISPOSITION: Patient left the hospital with his family to return to the family home. LEGAL COURSE: Patient was placed on a short-term certification at the expiration of his M1 hold. [facility] short-term certification was discontinued at the time of his discharge. /[id number]
== END 2016-08-31 18:15 | disposition home or self-care (01) | DRG 897 ==
LOC: BBEH 08-16 03:50
PROVIDERS: ADMIT Psychiatry & Neurology Psychiatry; ATTEND Psychiatry & Neurology Psychiatry
DX: F12.250 Cannabis dependence with psychotic disorder with delusions (principal)
CPT/HCPCS: 80305; 82947-QW; 96374; G0480